=== PATIENT | male | born 1980 | race Hispanic/Latino ===

== ENCOUNTER 2019-06-22 00:07 | Emergency (ER) | payer SELFPAY ==
[~2019-06-22] VITALS: Ht 170.2 cm; Wt 71.7 kg
--- OUTSIDE RECORDS SUMMARY | 2019-06-22 00:15 | XMS REPORT ---
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 Allergies, Adverse Reactions, Alerts This patient has no known allergies or adverse reactions. Medications This patient has no known medications. Encounters Start Date/Time End Date/Time Encounter Type Admission Type Attending Clinicians Care Facility Care Department Encounter ID [id number] 00:00:00 2017-04-19 00:00:00 Outpatient [facility] [id number]
== END 2019-06-22 00:29 | disposition left against medical advice (07) ==
LOC: ER 00:13
DX: G47.9 Sleep disorder, unspecified (principal); F17.200 Nicotine dependence, unspecified, uncomplicated; G89.29 Other chronic pain; M54.9 Dorsalgia, unspecified